=== PATIENT | male | born 1980 | race Caucasian/White ===

== ENCOUNTER 2024-03-08 13:55 | Emergency (ER) | payer BC ==
[~2024-03-08] VITALS: Ht 177.8 cm; Wt 95.2 kg
[2024-03-08] MEDS ORDERED: Ondansetron 4 MG SoluTab SL ONE (14:15)
[2024-03-08] MEDS ORDERED: Diphth,Pertuss(Acell),Tet Vac 0.5 ML VIAL IM ONE (14:20)
[2024-03-08] MEDS ORDERED: AMOCLA875 PO (15:38)
== END 2024-03-08 15:50 | disposition home or self-care (01) ==
LOC: ER 13:55 → EDBD 13:55 → ER 15:50
DX: S01.551A Open bite of lip, initial encounter (principal); W54.0XXA Bitten by dog, initial encounter
CPT/HCPCS: 12015; 90471; 90715; 99282-25; A9270